=== PATIENT | female | born 1990 | race African-American/Black ===

== ENCOUNTER 2022-03-08 23:53 | Emergency (ER) | payer OTHER ==
[~2022-03-08] VITALS: Ht 167.6 cm; Wt 70.0 kg
[2022-03-09 00:04] VITALS: BP 104/68
[2022-03-09] MEDS ORDERED: HYDR-4723 PO (01:24)
[2022-03-09] MEDS ORDERED: PENI500T2 PO (01:24)
[2022-03-09] MEDS ORDERED: IBUP-1554 PO (01:24)
[2022-03-09] MEDS ORDERED: IBUPROFEN 600 MG TABLET PO ONE (01:30)
[2022-03-09] MEDS ORDERED: CEPHALEXIN MONOHYDRATE 500 MG CAPSULE PO ONE (01:30)
[2022-03-09] MEDS ORDERED: HYDROCODONE/ACETAMINOPHEN 5-325 MG TABLET PO ONE (01:30)
[2022-03-15] MEDS ORDERED: OXYC-38 PO (12:56)
[2022-03-15] MEDS ORDERED: PERCT PO (13:07)
== END 2022-03-09 01:47 | disposition home or self-care (01) ==
LOC: EMS 23:55
DX: K08.89 Other specified disorders of teeth and supporting structures (principal); K04.7 Periapical abscess without sinus; K02.9 Dental caries, unspecified
CPT/HCPCS: 99284; Z7502; Z7610

== ENCOUNTER 2022-03-13 07:47 | Emergency (ER) | payer OTHER ==
[~2022-03-13] VITALS: Ht 167.6 cm; Wt 63.6 kg
[~2022-03-13 07:47] MED LIST: HYDR-4723 PO; IBUP-1554 PO; PENI500T2 PO
[2022-03-13] MEDS ORDERED: AMOX500C2 PO (08:06)
[2022-03-13] MEDS ORDERED: IBUP-2070 PO (08:06)
[2022-03-13] MEDS ORDERED: PERCT PO (09:31)
[2022-03-13 10:07] VITALS: BP 117/67
[2022-03-15] MEDS ORDERED: OXYC-38 PO (12:56)
[2022-03-15] MEDS ORDERED: PERCT PO (13:07)
== END 2022-03-13 10:10 | disposition home or self-care (01) ==
LOC: EMS 07:50
DX: K02.9 Dental caries, unspecified (principal)
CPT/HCPCS: 99283